=== PATIENT | male | born 1980 | race Caucasian/White ===

== ENCOUNTER 2019-10-13 14:59 | Emergency (ER) | payer MEDICARE, OTHER ==
--- NOTE | 2019-10-13 16:06 | UC ---
Respiratory Complaint HPI - HPI Summary HPI Summary: 39-year-old male presents to urgent care with complaints of fever, nasal congestion, sinus pressure, sore throat, chest congestion, shortness of breath, wheezing, and productive cough of brownish sputum for the past week and a half. No history of asthma. Denies ear pain, dysphagia, chest pain, palpitations, diaphoresis, abdominal pain, nausea, or vomiting. - History of Current Complaint Chief Complaint: UCRespiratory Stated Complaint: RESP COMPLAINT Time Seen by Provider: 10/13/19 15:35 Hx Obtained From: Patient Pain Intensity: 5 - Allergies/Home Medications Allergies/Adverse Reactions: Allergies Allergy/AdvReac Type Severity Reaction Status Date / Time makeup Allergy Hives Uncoded 10/13/19 15:15 Home Medications: Home Medications Albuterol HFA INHALER* [Ventolin HFA Inhaler*] 2 puff INH ONCE PRN 10/13/19 [ History Confirmed 10/13/19] Dm/PE/Acetaminophen/Doxylamine [Vicks Dayquil-Nyquil Cold-Flu] 1 tab PO ONCE PRN 10/13/19 [History Confirmed 10/13/19] Eucalyptus/Menthol [Cough Drops] 1 tab PO ONCE PRN 10/13/19 [History Confirmed 10/13/19] PMH/Surg Hx/FS Hx/Imm Hx Previously Healthy: Yes - Denies significant PMH - Surgical History Surgical History: None - Family History Known Family History: Positive: Non-Contributory - Social History Occupation: Employed Full-time Lives: With Family Alcohol Use: Rare Substance Use Type: Excessive Caffeine Smoking Status (MU): Never Smoked Tobacco Review of Systems All Other Systems Reviewed And Are Negative: Yes Constitutional: Positive: Fever, Chills Skin: Negative: Rash Eyes: Negative: Drainage, Eye Redness ENT: Positive: Sore Throat, Nasal Discharge, Sinus Congestion, Sinus Pain/ Tenderness. Negative: Ear Ache Respiratory: Positive: Shortness Of Breath, Cough, Other - Wheezing Cardiovascular: Negative: Palpitations, Chest Pain Gastrointestinal: Negative: Abdominal Pain, Vomiting, Nausea Musculoskeletal: Positive: Negative Neurological: Positive: Negative Is Patient Immunocompromised?: No Physical Exam - Summary Physical Exam Summary: GENERAL APPEARANCE: Well developed, well nourished, alert and cooperative, and appears to be in no acute distress. EYES: Conjunctiva clear. No drainage. EARS: External auditory canals and tympanic membranes clear, hearing grossly intact. NOSE: Moderate nasal congestion. No nasal discharge. THROAT: Mild pharyngeal erythema with postnasal drip. No tonsilar inflammation , swelling, exudate, or lesions. Uvula midline. NECK: Neck supple, non-tender without lymphadenopathy. CARDIAC: Normal S1 and S2. No S3, S4 or murmurs. Rhythm is regular. There is no peripheral edema, cyanosis or pallor. Extremities are warm and well perfused. Capillary refill is less than 2 seconds. Peripheral pulses intact. LUNGS: Diminished breath sounds with diffuse bilateral expiratory wheezes. Harsh, bronchospastic cough. ABDOMEN: Positive bowel sounds. Soft, nondistended, nontender. No guarding or rebound. No masses or hepatosplenomegally. MUSKULOSKELETAL: ROM intact to all extremities. No joint erythema or tenderness. Normal muscular development. Normal gait. SKIN: Skin normal color, texture and turgor with no lesions or eruptions. Triage Information Reviewed: Yes Vital Signs: Initial Vital Signs Temp 100.1 F 10/13/19 15:04 Pulse 126 10/13/19 15:04 Resp 20 10/13/19 15:04 BP 126/74 10/13/19 15:04 Pulse Ox 98 10/13/19 15:04 Vital Signs Reviewed: Yes Diagnostics - Radiology No standard instances Radiology Interpretation Completed By: Radiologist Summary of Radiographic Findings: Order Information: CHEST PA LAT 2 VWS. HISTORY: cough, sob. COMPARISONS: March 13, 2016 VIEWS: 4: Frontal dual-energy and lateral views of the chest. FINDINGS: CARDIOMEDIASTINAL SILHOUETTE: The cardiomediastinal silhouette is normal. ANTONY: The antony are normal. PLEURA: The costophrenic angles are sharp. No pleural abnormalities are noted. LUNG PARENCHYMA: The lungs are clear. ABDOMEN: The upper abdomen is clear. There is no subphrenic gas. BONES AND SOFT TISSUES: No bone or soft tissue abnormalities are noted. OTHER: None. IMPRESSION: NO ACTIVE CARDIOPULMONARY DISEASE Respiratory Course/Dx - Course Course Of Treatment: 39-year-old male presents to urgent care with complaints of fever, nasal congestion, sinus pressure, sore throat, chest congestion, shortness of breath, wheezing, and productive cough of brownish sputum for the past week and a half. No history of asthma. Denies ear pain, dysphagia, chest pain, palpitations, diaphoresis, abdominal pain, nausea, or vomiting. Patient had an elevated temperature of 100.1 F and was tachycardic otherwise vital signs were stable. He was given a dose of acetaminophen 975 mg PO for the fever. On exam he had moderate nasal congestion, mild pharyngeal erythema with postnasal drip, no tonsillar swelling or exudate, no cervical lymphadenopathy, diminished bilateral breath sounds with diffuse expiratory wheezes, a harsh, bronchospastic cough, and otherwise unremarkable exam. A chest x-ray was obtained and no acute cardiopulmonary pathology was noted. He was given a DuoNeb treatment and prednisone 60 mg PO to treat for some reactive airway disease secondary to an upper respiratory infection. Patient reported improvement in breathing and cough after the nebulizer treatment. He continued to have some bilateral expiratory wheezes however her exchange was much improved. Considering the duration of his symptoms and the persistent fever will start him on Augmentin 875 mg twice a day 10 days to treat for an upper respiratory infection and continue him on prednisone 50 mg daily for the next 4 days for the reactive airway disease as well as provide him with an albuterol inhaler and nebulizer solution to use as needed for shortness of breath and wheezing. He is to follow-up with his primary care provider in 3 days for recheck of his symptoms. Anticipatory guidance and warning symptoms are reviewed with the patient. Verbalizes understanding and agrees with plan of care. - Differential Dx/Diagnosis Differential Diagnosis/HQI/PQRI: Bronchitis, Influenza, Lower Resp Infection, Sinusitis Provider Diagnosis: Upper respiratory infection with cough and congestion, Reactive airway disease that is not asthma Discharge ED - Sign-Out/Discharge Documenting (check all that apply): Patient Departure All imaging exams completed and their final reports reviewed: Yes - Discharge Plan Condition: Stable Disposition: HOME Prescriptions: Albuterol 2.5MG/3ML (0.083%)* [Ventolin 2.5 MG/3 ML NEB.ALEX*] 2.5 mg INH Q4H PRN #50 neb.alex PRN Reason: Sob/Wheezing Albuterol HFA INHALER* [Ventolin HFA Inhaler*] 2 puff INH Q4H PRN #1 mdi PRN Reason: Sob/Wheezing Amoxicillin/Clavulanate TAB* [Augmentin TAB 875*] 875 mg PO BID 10 Days #20 tab predniSONE 50 mg TAB [Deltasone 50 mg TAB] 50 mg PO DAILY #4 tab Patient Education Materials: Upper Respiratory Infection (ED), Wheezing (ED) Referrals: Katelyn Andre MD [Primary Care Provider] - Additional Instructions: Your history and exam are consistent with an upper respiratory infection with reactive airway disease (wheezing). We will start you on an antibiotic for the infection and give you a steroid and inhaler/nebulizer to use for the shortness of breath and wheezing. Start Augmentin 875 mg 1 tablet twice a day for 10 days. Take with food to avoid upset stomach. Be sure to take the entire course even if feeling better. Take prednisone 50 mg 1 tablet daily for 4 days starting tomorrow. We gave the first dose today in the clinic. Use the albuterol inhaler or nebulizer solution every 4 hours as needed for shortness of breath or wheezing. Get plenty of rest. Drink plenty of fluids. Run a cool mist humidifer in your room at night. Take over the counter acetaminophen (Tylenol) or ibuprofen (Advil, Motrin) according to directions as needed for pain or fever. Follow up with your primary care provider in 3-5 days recheck of your symptoms. Seek immediate medical attention in the emergency room if you have fever greater than 100.5 F despite taking acetaminophen or ibuprofen, have chest pain , difficulty breathing, or have any worsening of symptoms. - Billing Disposition and Condition Condition: STABLE Disposition: Home - Attestation Statements Provider Attestation: This patient was not seen by me. I was available for consult. Chart reviewed. ROMEO
[2019-10-13] MEDS ORDERED: Albuterol/Ipratropium NEB.SOL* Albuterol 2.5 MG/Ipratropium 0.5 MG 3 ML INH ONE (16:26)
[2019-10-13] MEDS ORDERED: Acetaminophen TAB* 325 MG PO ONE (16:26)
[2019-10-13 17:17] VITALS: BP 140/81
== END 2019-10-13 17:15 | disposition home or self-care (01) ==
LOC: UCEAST 14:59
DX: J06.9 Acute upper respiratory infection, unspecified (principal); R05 Cough; R09.81 Nasal congestion; J98.8 Other specified respiratory disorders; Z91.09 Other allergy status, other than to drugs and biological substances
CPT/HCPCS: 71046; 99203; A9270-GY; G0463; J7512

== ENCOUNTER 2019-11-23 14:25 | Emergency (ER) | payer MEDICARE, OTHER ==
--- OUTSIDE RECORDS SUMMARY | 2019-11-23 14:30 | XMS REPORT | Summary of Care ---
:1980 Author Organization [facility] Address [address] [place] [address] Care Team Providers Name Role Phone Katelyn Andre Primary Care Provider Reason for Visit Reason Comments Follow Up f/u to URI Encounter Details Date Type Department Care Team Description 11/05/2019 Office Visit [facility], Acute bronchitis with Practice MD Katelyn bronchospasm (Primary [address] Dx) [place] [address] [place] [address] [phone] Allergies Active Allergy Reactions Severity Noted Date Comments Haloperidol And Related Musculoskeletal 01/03/2011 documented as of this encounter (statuses as of 11/05/2019) Medications Medication Sig Dispensed Refills Start Date End Date Status albuterol HFA Q4H 0 10/13/2019 Active (VENTOLIN) 108 (90 Base) MCG/ACT Inhalation Aero Soln albuterol Q4H 0 10/13/2019 Active (PROVENTIL, VENTOLIN) (2.5 MG/3ML) 0.083% Inhalation Nebu Soln budesonide-formo Take 2 INHL by 1 Inhaler 1 10/22/2019 Active terol fumarate inhalation (SYMBICORT) TWICE DAILY. 80-4.5 MCG/ACT Inhalation Aerosol amoxicillin-clav TWICE DAILY 0 10/13/2019 Discontinued ulanic acid 0 (Therapy (AUGMENTIN) Completed) 875-125 MG Oral Tab documented as of this encounter (statuses as of 11/05/2019) Active Problems No known active problemsdocumented as of this encounter (statuses as of 2019) Immunizations Name Administration Dates Next Due Influenza (IM) Preservative Free 07/22/2019 documented as of this encounter Social History Tobacco Use Types Packs/Day Years Used Date Former Smoker Cigars Smokeless Tobacco: Current User Chew Alcohol Use Drinks/Week oz/Week Comments Yes 9-14shots of vodka on weekends Alcohol Habits Answer Date Recorded How often do you have a drink containing alcohol? Monthly or less 10/22/2019 How many drinks containing alcohol do you have on a Not asked typical day when you are drinking? How often do you have six or more drinks on one Not asked occasion? Social Isolation Answer Date Recorded In a typical week, how many times do you More than three times a week 2019 talk on the phone with family, friends, or neighbors? How often do you get together with friends Once a week 10/22/2019 or relatives? How often do you attend adventist or Never 10/22/2019 jehovah's witness services? Do you belong to any clubs or No 10/22/2019 organizations such as adventist groups, unions, fraternal or athletic groups, or school groups? How often do you attend meetings of the Never 10/22/2019 clubs or organizations you belong to? Are you now , , , 10/22/2019 , never or living with a partner? Physical Activity Answer Date Recorded On average, how many days per week do you engage in moderate to 0 days 2019 strenuous exercise (like walking fast, running, jogging, dancing, swimming, biking, or other activities that cause a light or heavy sweat)? On average, how many minutes do you engage in exercise at this 0 min 2019 level? Stress Answer Date Recorded Do you feel stress - tense, restless, nervous, or anxious, Not at all 2019 or unable to sleep at night because your mind is troubled all the time - these days? Financial Resource Strain Answer Date Recorded How hard is it for you to pay for the very basics like Not hard at all 2019 food, housing, medical care, and heating? Intimate Partner Violence Answer Date Recorded Within the last year, have you been afraid of your partner or No 10/22/2019 ex-partner? Within the last year, have you been humiliated or emotionally No 10/22/2019 abused in other ways by your partner or ex-partner? Within the last year, have you been kicked, hit, slapped, or No 10/22/2019 otherwise physically hurt by your partner or ex-partner? Within the last year, have you been raped or forced to have any No 10/22/2019 kind of sexual activity by your partner or ex-partner? Food Insecurity Answer Date Recorded Within the past 12 months, you worried that your food would Never true 2019 run out before you got money to buy more. Within the past 12 months, the food you bought just didn't Never true 2019 last and you didn't have money to get more. Transportation Needs Answer Date Recorded In the past 12 months, has lack of transportation kept you from No 10/22/2019 medical appointments or from getting medications? In the past 12 months, has lack of transportation kept you from No 10/22/2019 meetings, work, or getting things needed for daily living? Sex Assigned at Date Recorded Not on file documented as of this encounter Last Filed Vital Signs Vital Sign Reading Time Taken Comments Blood Pressure 110/70 11/05/2019 3:47 PM EST Pulse 106 11/05/2019 3:47 PM EST Temperature 36.9 11/05/2019 3:47 PM EST C (98.4 F) Respiratory Rate - - Oxygen Saturation 94% 11/05/2019 3:47 PM EST Inhaled Oxygen Concentration - - Weight 108.9 kg (240 lb) 11/05/2019 3:47 PM EST Height 180.3 cm (5' 11") 11/05/2019 3:47 PM EST Body Mass Index 33.47 11/05/2019 3:47 PM EST documented in this encounter Patient Instructions Patient InstructionsKatelyn Andre MD - 11/05/2019 3:40 PM EST1. Continue same treatment 2. Follow up in 1 month for physical documented in this encounter Progress Notes Katelyn Andre MD - 11/05/2019 3:40 PM EST PATIENT: [place] Gallegos : 1980 DATE OF SERVICE: 11/05/2019 Patient comes follow up acute bronchitis with bronchospasm Feels better: resolved cough, uses Albuterol once or twice a day Doesn't use nebulizer at all Past Medical History: Diagnosis Date ? Bipolar affective disorder (HCC) Dr. Partida ? Lumbar herniated disc 2004 times 3 ? Pancreatitis Outpatient Medications as of 11/05/2019 Medication Sig Dispense Refill ? albuterol (PROVENTIL, VENTOLIN) (2.5 MG/3ML) 0.083% Inhalation Nebu Soln Q4H ? albuterol HFA (VENTOLIN) 108 (90 Base) MCG/ACT Inhalation Aero Soln Q4H ? budesonide-formoterol fumarate (SYMBICORT) 80-4.5 MCG/ACT Inhalation Aerosol Take 2 INHL by inhalation TWICE DAILY. 1 Inhaler 1 No current facility-administered medications on file as of 11/05/2019. BP 110/70 (BP Location: Left arm, Patient Position: Sitting) | Pulse 106 | Temp 98.4 F (36.9 C) (Tympanic) | Ht 5' 11" (1.803 m) | Wt 240 lb ( 108.9 kg) | SpO2 94% | BMI 33.47 kg/m General appearance: alert, well appearing, and in no distress. Chest: clear to auscultation, no wheezes, rales or rhonchi, symmetric air entry. CVS exam: normal rate, regular rhythm, normal S1, S2, no murmurs, rubs, clicks or gallops. ICD-9-CM ICD-10-CM 1. Acute bronchitis with bronchospasm Much improved 466.0 J20.9 Patient also brings up today erectile dysfunction, chronic back pain, weight gain We agreed to address it next visit Patient Instructions 1. Continue same treatment 2. Follow up in 1 month for physical Author: Katelyn Andre MD 11/05/2019 16:14 documented in this encounter Plan of Treatment Health Maintenance Due Date Last Done Comments DTaP/Tdap/Td Vaccines (1 - Tdap) 1992 DEPRESSION SCREENING 10/22/2020 10/22/2019 INFLUENZA VACCINE Completed 07/22/2019 HEPATITIS A IMMUNIZATION SERIES Aged Out No longer eligible based on patient's age to complete this topic HPV IMMUNIZATION SERIES Aged Out No longer eligible based on patient's age to complete this topic MENINGOCOCCAL VACCINE IMM Aged Out No longer eligible based on patient's age to complete this topic PNEUMOCOCCAL 0-64 YRS Aged Out No longer eligible based on patient's age to complete this topic documented as of this encounter Results Not on filedocumented in this encounter Visit Diagnoses Diagnosis Acute bronchitis with bronchospasm Acute bronchitis documented in this encounter Insurance Payer Benefit Plan / Subscriber ID Effective Dates Phone Address Type Group AETNA COMMERCIAL AETNA [id number] 2017-Present Aetna Guarantor Name Account Type Relation to Date of Phone Billing Patient Address Sera Gallegos Personal/Family [address] (Home) [place], [place] [phone] (Work) documented as of this encounter
--- OUTSIDE RECORDS SUMMARY | 2019-11-23 14:30 | XMS REPORT | Summary of Care ---
:1980 Author Organization [facility] Address [address] [place] [address] Care Team Providers Name Role Phone Katelyn Andre Primary Care Provider Reason for Visit Reason Comments Establish Care pt presents to establish care Cough pt presents for cough that does not seem to be going away. Was seen at urgent care 10/13. Encounter Details Date Type Department Care Team Description 10/22/2019 Office Visit [facility] adult exam (Primary Dx); Practice MD Katelyn Acute bronchitis, unspecified organism; [address] [place] [address] [place] [address] [phone] Allergies Active Allergy Reactions Severity Noted Date Comments Haloperidol And Related Musculoskeletal 01/03/2011 documented as of this encounter (statuses as of 10/22/2019) Medications Medication Sig Dispensed Refills Start Date End Date Status amoxicillin-clavulan TWICE DAILY 0 10/13/2019 Active ic acid (AUGMENTIN) 875-125 MG Oral Tab albuterol HFA Q4H 0 10/13/2019 Active (VENTOLIN) 108 (90 Base) MCG/ACT Inhalation Aero Soln albuterol Q4H 0 10/13/2019 Active (PROVENTIL, VENTOLIN) (2.5 MG/3ML) 0.083% Inhalation Nebu Soln budesonide-formotero Take 2 INHL by 1 Inhaler 1 10/22/2019 Active l fumarate inhalation TWICE (SYMBICORT) 80-4.5 DAILY. MCG/ACT Inhalation Aerosol documented as of this encounter (statuses as of 10/22/2019) Active Problems No known active problemsdocumented as [...] or relatives? How often do you attend nondenominational or Never 10/22/2019 mosque services? Do you belong to any clubs or No 10/22/2019 organizations such as nondenominational groups, unions, fraternal or athletic groups, or [...] Assigned at Date Recorded Not on file Job Start Date Occupation Industry Not on file Not on file Not on file Travel History Travel Start Travel End No recent travel history available. documented as of this encounter Last Filed Vital Signs Vital Sign Reading Time Taken Comments Blood Pressure 104/64 10/22/2019 4:04 PM EST Pulse 103 10/22/2019 4:04 PM EST Temperature 37.1 10/22/2019 4:04 PM EST C (98.8 F) Respiratory Rate - - Oxygen Saturation 99% 10/22/2019 4:04 PM EST Inhaled Oxygen Concentration - - Weight 111.1 kg (245 lb) 10/22/2019 4:04 PM EST Height 180.3 cm (5' 11") 10/22/2019 4:04 PM EST Body Mass Index 34.17 10/22/2019 4:04 PM EST documented in this encounter Patient Instructions Patient InstructionsKatelyn Andre MD - 10/22/2019 4:00 PM EST1. Start Symbicort 2 puffs 2 times a day 2. Continue Albuterol 2 puffs every 4 hours as needed for wheezing and shortness of breath 3. Take Mucinex 600 mg 2 times a day 4. Follow up in 2 weeks and as needed documented in this encounter Progress Notes Katelyn Andre MD - 10/22/2019 4:00 PM EST Patient: [place] Gallegos Date of Service: 10/22/2019 Subjective: uCba Gallegos is a 39-y.o. male who presents for Chief Complaint Patient presents with Establish Care pt presents to establish care Cough pt presents for cough that does not seem to be going away. Was seen at urgent care 10/13. Seen at [facility] on 10/13/19 with complains of fever, nasal congestion, productive cough with colored sputum started 1.5 weeks prior Treated with Augmentin, Prednisone, Albuterol as needed Reduced cough. Still has some wheezing Chest X-ray done 10/13 - no acute findings Past Medical History: Diagnosis Date Bipolar affective disorder (HCC) Dr. Partida Lumbar herniated disc 2004 times 3 Pancreatitis Outpatient Medications as of 10/22/2019 Medication Sig Dispense Refill albuterol (PROVENTIL, VENTOLIN) (2.5 MG/3ML) 0.083% Inhalation Nebu Soln Q4H albuterol HFA (VENTOLIN) 108 (90 Base) MCG/ACT Inhalation Aero Soln Q4H amoxicillin-clavulanic acid (AUGMENTIN) 875-125 MG Oral Tab TWICE DAILY No current facility-administered medications on file as of 10/22/2019. Allergies Allergen Reactions Haloperidol And Related Musculoskeletal Review of Systems: All remaining review of systems was negative. Objective: BP 104/64 (BP Location: Right arm, Patient Position: Sitting) Pulse 103 Temp 98.8 F (37.1 C) Ht 5' 11" (1.803 m) Wt 245 lb (111.1 kg) SpO2 99% BMI 34.17 kg/m2 GENERAL: alert, no distress HEAD: normocephalic, without obvious abnormality EYES: conjunctivae/corneas clear. Pupils equal, round, reactive to light. Equal ocular movements intact. EARS: normal tympanic membranes and external ear canals, bilaterally NOSE: Mild congestion THROAT: lips, mucosa, and tongue normal: teeth and gums normal NECK: supple, symmetrical, trachea midline and no adenopathy BACK: negative LUNGS: clear to auscultation bilaterally HEART: regular rate and rhythm, S1, S2 normal, no murmur, click, rub or gallop ABDOMEN: soft, non-tender. Bowel sounds normal. No masses, no organomegaly EXTREMITIES: extremities normal, atraumatic, no cyanosis or edema PULSES: 2+ and symmetric SKIN: Skin color, texture, turgor normal. No rashes or suspicious lesions. LYMPH NODES: cervical, supraclavicular, and axillary nodes normal. NEUROLOGIC: Grossly normal Male exam: no penile lesions or discharge, no testicular masses or tenderness , no hernias. ICD-9-CM ICD-10-CM 1. Well adult exam V70.0 Z00.00 2. Acute bronchitis, unspecified organism 466.0 J20.9 3. Wheezing 786.07 R06.2 Patient Instructions 1. Start Symbicort 2 puffs 2 times a day 2. Continue Albuterol 2 puffs every 4 hours as needed for wheezing and shortness of breath 3. Take Mucinex 600 mg 2 times a day 4. Follow up in 2 weeks and as needed Author: Katelyn Andre MD documented in this encounter Plan of Treatment Date Type Specialty Care Team Description 11/05/2019 Office Visit Family Practice Katelyn Andre MD [address] [place] [address] [phone] Health Maintenance Due Date Last Done Comments DTaP/Tdap/Td Vaccines (1 - Tdap) 1992 INFLUENZA VACCINE (#1) 2019 DEPRESSION SCREENING 10/22/2020 10/22/2019 HEPATITIS A IMMUNIZATION SERIES Aged Out No [...] filedocumented in this encounter Visit Diagnoses Diagnosis Well adult exam Routine general medical examination at a [facility] care facility Acute bronchitis, unspecified organism Wheezing documented in this encounter Insurance Payer Benefit Plan / Subscriber ID Effective Dates Phone Address Type Group AETNA COMMERCIAL AETNA xxxxxxxxxx 2017-Present Aetna Guarantor Name Account Type Relation to Date of Phone Billing Patient Address Sera Gallegos Personal/Family 1980 [address] (Home) [place], [place] [phone] (Work) documented as of this encounter
[2019-11-23] MEDS ORDERED: Ibuprofen TAB* 600 MG PO ONE (15:02)
[2019-11-23 15:25] LABS: Influenza A Molecular Negative (Negative); Influenza B Molecular Negative (Negative)
--- NOTE | 2019-11-23 15:40 | UC ---
Respiratory Complaint HPI - HPI Summary HPI Summary: 39-year-old male presents with 3 week history of general malaise, intermittent fever and chills, nasal congestion, sinus pressure, shortness of breath, and a productive cough for brownish colored sputum. States over the last couple of days he has started noticing some blood streaking in the sputum. Patient was seen at this facility by myself on 10/13/2019 for similar symptoms. He had a negative chest x-ray at that time and was treated for an upper respiratory infection with reactive airway disease with a 10 day course of Augmentin, a prednisone burst, and was provided albuterol nebulizer solution as well as an albuterol inhaler. Patient states that his symptoms did improve and was feeling well for approximately 2 weeks until symptoms returned. States he has been continuing to use his albuterol inhaler. Last used at approximately 3:30 AM. Reports took acetaminophen 650 mg at approximately 1:30 PM. Denies ear pain , sore throat, chest pain, palpitations, abdominal pain, nausea, vomiting, or diarrhea. - History of Current Complaint Chief Complaint: UCRespiratory Stated Complaint: COUGH Time Seen by Provider: 11/23/19 15:35 Hx Obtained From: Patient Pain Intensity: 0 - Allergies/Home Medications Allergies/Adverse Reactions: Allergies Allergy/AdvReac Type Severity Reaction Status Date / Time makeup Allergy Hives Uncoded 11/23/19 14:58 Home Medications: Home Medications Albuterol 2.5MG/3ML (0.083%)* [Ventolin 2.5 MG/3 ML NEB.ALEX*] 2.5 mg INH Q4H PRN #50 neb.alex 10/13/19 [Rx] Albuterol HFA INHALER* [Ventolin HFA Inhaler*] 2 puff INH ONCE PRN 10/13/19 [ History Confirmed 10/13/19] Dm/PE/Acetaminophen/Doxylamine [Vicks Dayquil-Nyquil Cold-Flu] 1 tab PO ONCE PRN 10/13/19 [History Confirmed 10/13/19] Acetaminophen [Tylenol] 650 mg PO Q6H PRN 11/23/19 [History Confirmed 11/23/19] PMH/Surg Hx/FS Hx/Imm Hx Previously Healthy: Yes - Surgical History Surgical History: None - Family History Known Family History: Positive: Non-Contributory - Social History Alcohol Use: Rare Substance Use Type: Excessive Caffeine Smoking Status (MU): Never Smoked Tobacco Review of Systems All Other Systems Reviewed And Are Negative: Yes Constitutional: Positive: Fever, Chills, Fatigue Skin: Negative: Rash Eyes: Negative: Drainage, Eye Redness ENT: Positive: Nasal Discharge, Sinus Congestion, Sinus Pain/Tenderness. Negative: Sore Throat, Ear Ache Respiratory: Positive: Shortness Of Breath, Cough Cardiovascular: Negative: Palpitations, Chest Pain Gastrointestinal: Negative: Abdominal Pain, Vomiting, Diarrhea, Nausea Genitourinary: Positive: Negative Musculoskeletal: Positive: Negative Neurological/Mental Status: Positive: Negative Is Patient Immunocompromised?: No Physical Exam - Summary Physical Exam Summary: GENERAL APPEARANCE: A alert and cooperative adult male who is tachypnic and unable to speak in full sentences due to his SOB. EYES: Conjunctiva clear. No drainage. EARS: External auditory canals and tympanic membranes clear, hearing grossly intact. NOSE: Mild-moderate nasal congestion. No nasal discharge. THROAT: Pharyngeal cobblestoning. No tonsilar inflammation, swelling, exudate, or lesions. Uvula midline. NECK: Neck supple, non-tender without lymphadenopathy. CARDIAC: Normal S1 and S2. No S3, S4 or murmurs. Rhythm is regular. Tachycardic. There is no peripheral edema, cyanosis or pallor. Extremities are warm and well perfused. Capillary refill is less than 2 seconds. Peripheral pulses intact. LUNGS: Bilateral diminished breath sounds with diffuse expiratory wheezes. Loose productive cough for thick garnica-colored sputum. ABDOMEN: Positive bowel sounds. Soft, nondistended, nontender. No guarding or rebound. No masses or hepatosplenomegally. MUSKULOSKELETAL: ROM intact to all extremities. No joint erythema or tenderness. Normal muscular development. Normal gait. SKIN: Skin normal color, texture and turgor with no lesions or eruptions. Triage Information Reviewed: Yes Vital Signs: Initial Vital Signs Temp 102.4 F 11/23/19 14:56 Pulse 104 11/23/19 14:56 Resp 24 11/23/19 14:56 BP 118/70 11/23/19 14:56 Pulse Ox 99 11/23/19 14:56 Vital Signs Reviewed: Yes Diagnostics - Radiology No standard instances Radiology Interpretation Completed By: Radiologist Summary of Radiographic Findings: Order Information: CHEST PA LAT 2 VWS. HISTORY: cough, SOB, fever. COMPARISONS: October 13, 2019 VIEWS: 4: Frontal dual-energy and lateral views of the chest. FINDINGS: CARDIOMEDIASTINAL SILHOUETTE: The cardiomediastinal silhouette is normal. ANTONY: The antony are normal. PLEURA: The costophrenic angles are sharp. No pleural abnormalities are noted. LUNG PARENCHYMA: There is faint alveolar opacification of the left midlung field. ABDOMEN: The upper abdomen is clear. There is no subphrenic gas. BONES AND SOFT TISSUES: No bone or soft tissue abnormalities are noted. OTHER: None. IMPRESSION: FAINT AIRSPACE DISEASE OF THE LEFT MIDLUNG. Respiratory Course/Dx - Course Course Of Treatment: 39-year-old male presents with 3 week history of general malaise, intermittent fever and chills, nasal congestion, sinus pressure, shortness of breath, and a productive cough for brownish colored sputum. States over the last couple of days he has started noticing some blood streaking in the sputum. Patient was seen at this facility by myself on 10/13/2019 for similar symptoms. He had a negative chest x-ray at that time and was treated for an upper respiratory infection with reactive airway disease with a 10 day course of Augmentin, a prednisone burst, and was provided albuterol nebulizer solution as well as an albuterol inhaler. Patient states that his symptoms did improve and was feeling well for approximately 2 weeks until symptoms returned. States he has been continuing to use his albuterol inhaler. Last used at approximately 3:30 AM. Reports took acetaminophen 650 mg at approximately 1:30 PM. Denies ear pain , sore throat, chest pain, palpitations, abdominal pain, nausea, vomiting, or diarrhea. Clinic triage patient had an elevated temperature of 102.4 F with a corresponding tachycardia otherwise vital signs were stable. Patient was given ibuprofen 600 mg for the fever. On exam patient was tachypnic, unable to spead full sentences due to the SOB, he had mild to moderate nasal congestion, pharyngeal cobblestoning, no cervical lymphadenopathy, he was tachycardic with a normal S1 and S2, breath sounds were diminished bilaterally with diffuse wheezes, he had a productive cough for garnica colored sputum, and otherwise unremarkable exam. Nursing obtained an ambulatory pulse ox and reported that he became very short of breath dropping his O2 saturation to 91% with an increase in his heart rate into the 120s. Rapid influenza was negative. CXR showed a faint alveolar opacification of the left midlung field. Reviewed results with the patient. Nursing reported that the patient's fever increased to 104.4 F. Discussed with the patient that based on his dyspnea, exertional hypoxia, persistent fever, and evidence of pneumonia recommending he be further evaluated in the emergency room at this time and be transported via EMS to which results he is agreeable. He did receive a DuoNeb treatment with some improvement in his breathing. A sputum culture was obtained and is pending. An IV was established, 2 sets of blood cultures were obtained and labs were drawn and blood was sent with the patient to the ED. Patient was given ceftriaxone 1 g IV. Report was given to CHEYANNE Jean in the [facility] ED. - Differential Dx/Diagnosis Differential Diagnosis/HQI/PQRI: Bronchitis, Influenza, Lower Resp Infection, Other - Reactive airway disease Provider Diagnosis: Community acquired pneumonia - Physician Notification/Consults Discussed Patient Care With: Anna Peña Time Discussed With Above Provider: 16:40 Instructed by Provider To: Will See In ED Discharge ED - Sign-Out/Discharge Documenting (check all that apply): Patient Departure All imaging exams completed and their final reports reviewed: Yes - Discharge Plan Condition: Stable Disposition: TRANS HIGHER LVL OF CARE FAC Referrals: Katelyn Andre MD [Primary Care Provider] - - Billing Disposition and Condition Condition: STABLE Disposition: Trans Higher Lvl of Care Fac
[2019-11-23] MEDS ORDERED: Acetaminophen TAB* 325 MG PO ONE (15:50)
[2019-11-23] MEDS ORDERED: Albuterol/Ipratropium NEB.SOL* Albuterol 2.5 MG/Ipratropium 0.5 MG 3 ML INH ONE (15:50)
[2019-11-23] MEDS ORDERED: Levofloxacin TAB* 250 MG PO ONE (16:23)
[2019-11-23] MEDS ORDERED: cefTRIAXone VIAL(*) 1,000 MG VIAL IVPB ONE (16:28)
[2019-11-23 16:52] VITALS: BP 155/91
[2019-11-23] MEDS ORDERED: NS 0.9% 1000 ML** 1,000 ML IV ONE (16:55)
== END 2019-11-23 17:41 | disposition short-term general hospital (02) ==
LOC: UCEAST 14:25
DX: J18.8 Other pneumonia, unspecified organism (principal); R91.8 Other nonspecific abnormal finding of lung field; Z91.09 Other allergy status, other than to drugs and biological substances; Z79.899 Other long term (current) drug therapy
CPT/HCPCS: 71046; 99213; A9270-GY; G0463; J0696

== ENCOUNTER 2019-11-23 17:11 | Inpatient (IN) | payer OTHER ==
--- NOTE | 2019-11-23 17:23 | ED ---
Respiratory - HPI Summary HPI Summary: This patient is a 39 y/o male presenting to [facility] via EMS from [facility] for fever and cough. Patient reports he went to [facility] on 10/13/19 with fevers, chills, nasal congestion, shortness of breath, and productive cough. He was diagnosed with upper respiratory infection and reactive airway disease and was prescribed steroids, albuterol inhaler, and Augmentin. After these medications patient felt better and his symptoms improved until 2 weeks later when his symptoms returned. Patient went to [facility] again today with a 104F fever and was given Tylenol, started on 1 gram of Rocephin and referred to the ED. [facility] helene blood and sent blood cultures to the ED. Patient denies any chest pain, nausea, vomiting. Per EMS, patient SPO2 dropped to 91% on room air upon ambulation. Denies hx of asthma. Home Medications Medication Instructions Recorded Confirmed Type Albuterol 2.5MG/3ML (0.083%)* 2.5 mg INH Q4H PRN #50 neb.alex 10/13/19 Rx [Ventolin 2.5 MG/3 ML NEB.ALEX*] Albuterol HFA INHALER* [Ventolin 2 puff INH ONCE PRN 10/13/19 10/13/19 History HFA Inhaler*] Dm/PE/Acetaminophen/Doxylamine 1 tab PO ONCE PRN 10/13/19 10/13/19 History [Vicks Dayquil-Nyquil Cold-Flu] Acetaminophen [Tylenol] 650 mg PO Q6H PRN 11/23/19 11/23/19 History - History of Current Complaint Stated Complaint: FEVER PER EMS Hx Obtained From: Patient Onset/Duration: Lasting Weeks, Still Present Timing: Constant Pain Intensity: 0 Character: Cough (Productive), Dyspnea at Rest Aggravating Factor(s): Nothing Alleviating Factor(s): Nothing Associated Signs and Symptoms: Fever, SOB, URI, Chills - Allergy/Home Medications Allergies/Adverse Reactions: Allergies Allergy/AdvReac Type Severity Reaction Status Date / Time makeup Allergy Hives Uncoded 11/23/19 17:22 Home Medications: Home Medications Albuterol 2.5MG/3ML (0.083%)* [Ventolin 2.5 MG/3 ML NEB.ALEX*] 2.5 mg INH Q4H PRN #50 neb.alex 10/13/19 [Rx Confirmed 11/23/19] Dm/PE/Acetaminophen/Doxylamine [Vicks Dayquil-Nyquil Cold-Flu] 1 tab PO DAILY PRN 10/13/19 [History Confirmed 11/23/19] Acetaminophen [Tylenol] 650 mg PO Q6H PRN 11/23/19 [History Confirmed 11/23/19] Albuterol inh POWDER (NF) [Proair Respiclick] 2 puff INH Q6HR PRN 11/23/19 [ History Confirmed 11/23/19] Budesonide/Formote 80/4.5(NF) [Symbicort 80/4.5 (NF)] 2 puff INH BID 11/23/19 [ History Confirmed 11/23/19] PMH/Surg Hx/FS Hx/Imm Hx GI History: Denies: Other GI Disorders - DENIES History: Denies: Other Problems/Disorders - DENIES Infectious Disease History: No Infectious Disease History: Denies: Traveled Outside the [place] in Last 30 Days - Family History Known Family History: Negative: Cardiac Disease, Hypertension, Diabetes - Social History Alcohol Use: Rare Substance Use Type: Reports: Excessive Caffeine Smoking Status (MU): Never Smoked Tobacco Review of Systems Positive: Fever Negative: Chest Pain Positive: Shortness Of Breath, Cough Negative: Vomiting, Nausea All Other Systems Reviewed And Are Negative: Yes Physical Exam - Summary Physical Exam Summary: VITAL SIGNS: Reviewed. GENERAL: Patient is a well-developed and nourished male who is lying comfortable in the stretcher. Patient is not in any acute respiratory distress. HEAD AND FACE: No signs of trauma. No ecchymosis, hematomas or skull depressions. No sinus tenderness. EYES: PERRLA, EOMI x 2, No injected conjunctiva, no nystagmus. EARS: Hearing grossly intact. Ear canals and tympanic membranes are within normal limits. MOUTH: Oropharynx within normal limits. NECK: Supple, trachea is midline, no adenopathy, no JVD, no carotid bruit, no c- spine tenderness, neck with full ROM. CHEST: Symmetric, no tenderness at palpation LUNGS: Crackles and wheezing. CVS: Regular rate and rhythm, S1 and S2 present, no murmurs or gallops appreciated. ABDOMEN: Soft, non-tender. No signs of distention. No rebound, no guarding, and no masses palpated. Bowel sounds are normal. EXTREMITIES: FROM in all major joints, no edema, no cyanosis or clubbing. Patient has an IV access on the left side receiving Rocephin from Urgent Care with IV fluids. NEURO: Alert and oriented x 3. No acute neurological deficits. Speech is normal and follows commands. SKIN: Dry and warm Triage Information Reviewed: Yes Vital Signs On Initial Exam: Initial Vitals Temp Pulse Resp BP Pulse Ox 100.5 F 124 30 142/86 97 11/23/19 17:15 11/23/19 17:15 11/23/19 17:15 11/23/19 17:15 11/23/19 17:15 Vital Signs Reviewed: Yes Procedures - Sedation Patient Received Moderate/Deep Sedation with Procedure: No Diagnostics - Vital Signs Vital Signs Temp Pulse Resp BP Pulse Ox 11/23/19 17:15 100.5 F 124 30 142/86 97 - Laboratory Result Diagrams: 11/23/19 17:17 11/23/19 17:17 Lab Statement: Any lab studies that have been ordered have been reviewed, and results considered in the medical decision making process. - Radiology Chest XR from Urgent Care Radiology Interpretation Completed By: Radiologist Summary of Radiographic Findings: IMPRESSION: Faint airspace disease of the left mid lung, recommend follow up until resolution to exclude underlying pulmonary parenchymal pathology. Dr. Matamoros has reviewed this report. - EKG 18:45 Cardiac Rate: Tachycardia - at 108 bpm EKG Rhythm: Sinus Tachycardia Summary of EKG Findings: EKG at 1845 shows sinus tachycardia at a rate of [address] elevations. This EKG was interpreted and reviewed by ED physician. Disposition - Course Assessment/Plan: This patient is a 39 y/o male presenting to [facility] via EMS from [facility] for fever and cough. Patient reports he went to [facility] on with fevers, chills, nasal congestion, shortness of breath, and productive cough. He was diagnosed with upper respiratory infection and reactive airway disease and was prescribed steroids, albuterol inhaler, and Augmentin. After these medications patient felt better and his symptoms improved until 2 weeks later when his symptoms returned. Patient went to [facility] again today with a 104F fever and was given Tylenol, started on 1 gram of Rocephin and referred to the ED. [facility] helene blood and sent blood cultures to the ED. Patient denies any chest pain, nausea, vomiting. Per EMS, patient SPO2 dropped to 91% on room air upon ambulation. Denies hx of asthma. CXR IMPRESSION: FAINT AIRSPACE DISEASE OF THE LEFT MIDLUNG. RECOMMEND FOLLOW-UP UNTIL RESOLUTION TO EXCLUDE UNDERLYING PULMONARY PARENCHYMAL PATHOLOGY. Before the patient came to the emergency department, at the urgent care the patient was given IV fluids, Rocephin and Tylenol. Blood test results without any significant abnormality except for WBCs of 11.5, hemoglobin 12.7, hematocrit 38 , CRP of 221 and BNP 105. Influenza A and B are both negative. The patient was also given azithromycin for pneumonia. The patient continues to be tachycardic and still febrile. Therefore, I discussed my physical exam and test results with Dr. Breaux from the hospitalist services and she agrees to admit the patient to her services. The patient is hemodynamically stable, alert and oriented x 3. - Diagnoses Provider Diagnoses: Pneumonia, Tachycardia, Fever - Physician Notifications Discussed Care Of Patient With: Dari Breaux - hospitalist Time Discussed With Above Provider: 19:32 Instructed by Provider To: Admit As Inpatient Discharge ED - Sign-Out/Discharge Documenting (check all that apply): Patient Departure - Admit to [facility] - Discharge Plan Condition: Stable Disposition: ADMITTED TO [facility] - Billing Disposition and Condition Condition: STABLE Disposition: Admitted to [facility] - Attestation Statements Document Initiated by Rony: Yes Documenting Scribe: Amairani Chavez Provider For Whom Rony is Documenting (Include Credential): Simone Matamoros MD Scribe Attestation: IAmairani, scribed for Simone Matamoros MD on 11/23/19 at 2058. Scribe Documentation Reviewed: Yes Provider Attestation: The documentation as recorded by the Amairani zamora accurately reflects the service I personally performed and the decisions made by me, Simone Matamoros MD Status of Scribe Document: Viewed
[2019-11-23 18:06] LABS: ABS Eosinophils 0.1 10^3/ul (0-0.6); ABS Lymphocytes 1.3 10^3/ul (1.0-4.8); ABS Monocytes 0.7 10^3/ul (0-0.8); ABS Neutrophils 9.5 10^3/ul (1.5-7.7); Eosinophil % 0.4 %; Hematocrit 38 % (42-52); Hemoglobin 12.7 g/dL (14.0-18.0); Lymphocyte % 10.9 %; Mean Corpuscular HGB Conc 34 g/dL (31-36); Mean Corpuscular Hemoglobin 30 pg (27-31); Mean Corpuscular Volume 89 fL (80-94); Mean Platelet Volume 9.2 fL (7.4-10.4); Platelet Count 217 10^3/uL (150-450); Red Blood Count 4.23 10^6 /uL (4.18-5.48); Red Cell Distribution Width 14 % (10-15); White Blood Count 11.5 10^3/uL (3.5-10.8)
[2019-11-23 18:19] LABS: Troponin I 0.01 ng/mL (<0.03)
[2019-11-23 18:20] LABS: Albumin 4.3 g/dL (3.2-5.2); Albumin/Globulin Ratio 1.4 (1-3); BUN/Creatinine Ratio 16.3 (8-20); C Reactive Protein 221.52 mg/L (<8.01); EGFR African American 130.9 (>60); EGFR Non-African American 108.2 (>60); Influenza A Molecular Negative (Negative); Influenza B Molecular Negative (Negative); Potassium 3.8 mmol/L (3.5-5.0); Total Bilirubin 0.4 mg/dL (0.2-1.0); Total Protein 7.3 g/dL (6.4-8.9)
[2019-11-23] MEDS ORDERED: NS 0.9% 1000 ML** 1,000 ML IV ONE (18:35)
[2019-11-23] MEDS ORDERED: Acetaminophen TAB* 325 MG PO ONE (18:49)
[2019-11-23] MEDS ORDERED: Azithromycin 500 mg/250 ml NS 500 MG/250 ML BAG IVPB ONE (19:02)
[2019-11-23 19:39] LABS: Urine Appearance Clear; Urine Bilirubin Negative (Negative); Urine Blood 3+ (Negative); Urine Color Yellow; Urine Glucose Negative (Negative); Urine Ketones 2+ (Negative); Urine Nitrite Negative (Negative); Urine Protein 2+(100 mg/dL) (Negative); Urine Specific Gravity 1.031 (1.010-1.030); Urine Urobilinogen Negative (Negative)
[2019-11-23 19:42] LABS: Urine Bacteria Absent (Absent); Urine Red Blood Cell 3+(>10/hpf) (Absent); Urine Squamous Epithelial Cell Present (Absent); Urine White Blood Cell Trace(0-5/hpf) (Absent)
[2019-11-23] MEDS ORDERED: Acetaminophen TAB* 325 MG PO PRN ×2 (20:07→23:28)
[2019-11-23] MEDS ORDERED: Albuterol 2.5 MG/3 ML NEB.SOL* (0.083%) INH PRN (20:07)
[2019-11-23] MEDS ORDERED: NS 0.9% IV ONE (20:15)
[2019-11-23] MEDS ORDERED: Iohexol 300* (CONTRAST) 10 ML SDV IV ONE (20:44)
[2019-11-23 20:56] LABS: Activated Partial Thrombo Time 38.1 seconds (26.0-38.0); INR 1.29 (0.82-1.09)
--- NOTE | 2019-11-23 21:45 | HP ---
CC: Dr. Andre * HISTORY AND PHYSICAL: DATE OF ADMISSION: 11/23/19 PRIMARY CARE PROVIDER: Dr. Andre. ATTENDING PHYSICIAN WHILE IN THE HOSPITAL: Dr. Dari Breaux * (report dictated by Efraín Carver NP). CHIEF COMPLAINT: 1. Cough. 2. Fever. 3. Not feeling well. HISTORY OF PRESENT ILLNESS: Mr. Kay is a 39-year-old male patient, previously healthy, who states that the last 4 weeks he has been dealing with a cough, not feeling well, feeling under the weather. He says that 3 to 2 weeks ago, he had seen his primary. He says that he went to [facility] because he could not get into the primary. He was seen on 10/13/19 with fevers, chills , nasal congestion, shortness of breath. He was diagnosed with URI. He was given steroids, albuterol and Augmentin. He initially felt better on these medications; however, approximately 2 weeks after, his symptoms came back again and he had a fever of 104 today. He felt dizzy. He felt lightheaded. He was coughing. He felt more short of breath. He was feeling congested. He was concerned and went to [facility] again given these findings. It was noted there that on x-ray it appeared that he had pneumonia, he also was noted to be 91% while ambulating on room air, there was a concern, he also reports that he has been coughing up brown colored sputum and at times having hemoptysis. He says that he has no other medical history such as like asthma and he is not diabetic. No history of HIV or hepatitis B or C. He came into the ER. He was exhibiting signs of sepsis. Given the fact that he was little hypoxic and the fact that he is little tachypneic, we were asked to evaluate for admission. PAST MEDICAL HISTORY: Denied. PAST SURGICAL HISTORY: Denied. MEDICATIONS: Home meds that were prescribed at [facility] include: 1. Symbicort 2 puffs inhaled b.i.d. 2. ProAir 2 puffs inhaled every 6 hours as needed. 3. Ventolin neb 2.5 mg inhaled every 4 hours as needed. 4. Tylenol 650 mg every 6 hours as needed. 5. Vicks DayQuil 1 tablet p.o. daily as needed. 6. He did finish a course of Augmentin. ALLERGIES TO MEDICATIONS: Include no known drug allergies. FAMILY HISTORY: He says his mother has dementia. His father had a history of heart disease, diabetes and endstage renal disease. SOCIAL HISTORY: He does not smoke. He occasionally drinks alcohol. He is engaged. His fiancee is a surrogate decision maker. He does have 4 children. REVIEW OF SYSTEMS: There is a documented fever. He denied any significant weight change. There is no double vision. He denied having any ear discharge. There was rhinorrhea. There was sore throat. There is no thyroid enlargement. He denies having any chest pain. There was no orthopnea. There was no nocturnal dyspnea. There was no abdominal pain. No nausea, vomiting, or dysuria. No frequency, no seizure, no loss of consciousness, no pruritus, and no skin ulcerations. Review of 14 systems completed, all others are negative. PHYSICAL EXAMINATION GENERAL: At this time, Mr. Kay is a 39-year-old male patient. He is sitting in the ED stretcher. He does not appear to be in any acute distress. VITAL SIGNS: Blood pressure 135/84; pulse 111; respirations when he came in were 30, now they are hovering between 20 and 22; O2 sat 98% on room air; temperature 102.3. HEENT: Head: Atraumatic, normocephalic. Eyes: EOMs are intact. Sclerae anicteric and not pale. Throat: Oral mucosa appears to be dry. No oropharyngeal erythema. NECK: Supple. LUNGS: He had rhonchi in the upper lobes. He had expiratory wheezes noted in the left lower and left upper lobe as well. Equal diaphragmatic expansion. HEART: Sounds S1, S2. He had no murmurs, rubs, or gallops. ABDOMEN: Soft. It was flat, nontender. Bowel sounds are present. EXTREMITIES: Pulses were 2+ throughout. He had no peripheral edema. He is moving all 4 extremities with 5/5 strength. NEUROLOGICAL: He is awake. He is alert. He is oriented x3. Tongue midline. Floor Representative are equal. He had no gross focal deficits. SKIN: Grossly intact. DIAGNOSTIC STUDIES/LAB DATA: Labs: WBC 11.5, RBC 4.23, hemoglobin 12.7, hematocrit 38, platelet count of 217. Sodium 138, potassium 3.8, chloride of 101, bicarb 25, BUN 13, creatinine 0.80, glucose 89, lactic 0.9, calcium 9. Total bili 0.4, AST 17, ALT 16, alk phos 65, CK 106. Troponin 0.01. CRP 221.52. BNP 105. Albumin 4.3. Urine showed 2+ protein, 2+ ketones, 3+ blood, high specific gravity of 1.031. Serology negative for flu. He had an EKG obtained today, which did show sinus tachycardia at a rate of 108. No ST elevations or T-wave inversions noted. Chest x-ray does show what appears to be an infiltrate on the left mid lung. Would recommend followup until resolution to exclude underlying pulmonary parenchymal pathology. Old medical records were reviewed. ASSESSMENT AND PLAN: Mr. Kay is a 39-year-old male patient with no medical history, coming into the ED today with complaints of cough, fever, chills, found to have pneumonia and sepsis. He will be admitted under inpatient status for: 1. Pneumonia with sepsis. I do not see any signs of end organ dysfunction at this point or no evidence of septic shock. However, he is tachycardic, he is febrile, so I will give him 30 cc/kg of fluids. I am going to start him on Levaquin. We will panculture him. We will check sputum culture. We will get Legionella antigen, Strep pneumo antigen. Given that he did not completely resolve with his previous infection, I am going to check an HIV. Also, we will do a CT of the chest. I am placing him on nebulizers, steroids and again, we will continue with aggressive pulmonary toileting and we will continue to follow him closely. 2. DVT prophylaxis: He is at moderate risk. We will place him on heparin subcu. 3. Code status: Full code. 4. Fluids, electrolytes, and nutrition: He can have a regular diet. TIME SPENT: Time spent on the admission was 60 minutes, greater than half the time was spent [id number] with the patient obtaining my history and physical, other half time spent going over the plan of care with the patient and implementing plan of care. I did discuss the plan of care with my attending, Dr. Breaux; she is in agreement. EFRAÍN CARVER, DOUGH MIXER HELPER [id number]/[facility] #: [id number] HILARIA
[2019-11-23 21:53] LABS: HIV 4th Generation Nonreactive (Nonreactive)
[2019-11-23] MEDS: Levofloxacin 750 MG IVPREMIX(* 750 MG/150 ML BAG IVPB SCH (22:22)
[2019-11-23] MEDS: Heparin VIAL(*) 5000 UNITS/ML VIAL (FIVE THOUSAND) SUBCUT SCH (22:37)
[2019-11-23] MEDS: methylPREDNISolone 125 MG* 2 ML VIAL IV SCH (22:37)
[2019-11-23] MEDS: Albuterol/Ipratropium NEB.SOL* Albuterol 2.5 MG/Ipratropium 0.5 MG 3 ML INH SCH (23:21)
[2019-11-23] MEDS: Mometasone/Formoter 200/5 MDI INH SCH (23:22)
[2019-11-24] MEDS: Albuterol/Ipratropium NEB.SOL* Albuterol 2.5 MG/Ipratropium 0.5 MG 3 ML INH SCH (03:04)
[2019-11-24] MEDS: Heparin VIAL(*) 5000 UNITS/ML VIAL (FIVE THOUSAND) SUBCUT SCH ×3 (05:22→20:42)
[2019-11-24 05:54] LABS: ABS Lymphocytes 0.7 10^3/ul (1.0-4.8); ABS Monocytes 0.2 10^3/ul (0-0.8); ABS Neutrophils 9.3 10^3/ul (1.5-7.7); Hematocrit 38 % (42-52); Lymphocyte % 6.9 %; Mean Corpuscular HGB Conc 34 g/dL (31-36); Mean Corpuscular Hemoglobin 30 pg (27-31); Mean Corpuscular Volume 89 fL (80-94); Mean Platelet Volume 8.7 fL (7.4-10.4); Platelet Count 228 10^3/uL (150-450); Red Blood Count 4.28 10^6 /uL (4.18-5.48); Red Cell Distribution Width 14 % (10-15); White Blood Count 10.3 10^3/uL (3.5-10.8)
[2019-11-24 06:03] LABS: INR 1.35 (0.82-1.09)
[2019-11-24 06:15] LABS: BUN/Creatinine Ratio 14.1 (8-20); EGFR African American 150.2 (>60); EGFR Non-African American 124.2 (>60)
[2019-11-24] MEDS ORDERED: Albuterol/Ipratropium NEB.SOL* Albuterol 2.5 MG/Ipratropium 0.5 MG 3 ML INH SCH (07:00)
[2019-11-24] MEDS: Mometasone/Formoter 200/5 MDI INH SCH ×2 (07:43→20:02)
[2019-11-24] MEDS: methylPREDNISolone 125 MG* 2 ML VIAL IV SCH ×2 (08:45→20:41)
[2019-11-24] MEDS ORDERED: Albuterol/Ipratropium NEB.SOL* Albuterol 2.5 MG/Ipratropium 0.5 MG 3 ML INH PRN (08:47)
--- NOTE | 2019-11-24 17:41 | PN ---
Subjective Date of Service: 11/24/19 Interval History: HOSPITALIST PROGRESS NOTE Patient seen and examined at bedside. Care reviewed and d/w Murali Riggs RN. He feels a little better today. Still very tired, but breathing and cough seem to be improving. Family History: Unchanged from Admission Social History: Unchanged from Admission Past Medical History: Unchanged from Admission Objective Active Medications: Acetaminophen (Tylenol Tab*) 650 mg PO Q4H PRN PRN Reason: MILD PAIN or TEMP > 100.4 Albuterol (Ventolin 2.5 Mg/3 Ml Neb.Heide*) 2.5 mg INH Q2H PRN PRN Reason: SOB/WHEEZING Last Admin: 11/23/19 23:44 Dose: 2.5 mg Albuterol/Ipratropium (Duoneb (Albuterol 2.5 Mg/Ipratropium 0.5 Mg)) 1 neb INH [id number] AWAKE PRN PRN Reason: SOB/WHEEZING Heparin Sodium (Porcine) (Heparin Vial(*)) 5,000 units SUBCUT Q8HR [facility] Last Admin: 11/24/19 14:42 Dose: Not Given Levofloxacin/Dextrose (Levaquin 750 Mg Ivpremix(*)) 750 mg in 150 mls @ 100 mls /hr IVPB Q24H TIFFANIE; Protocol Last Admin: 11/23/19 22:22 Dose: 100 mls/hr Methylprednisolone Sodium Succinate (Solu-Medrol 125mg *) 60 mg IV Q12H TIFFANIE Last Admin: 11/24/19 08:45 Dose: 60 mg Mometasone Furoate/Formoterol Fumar (Dulera 200/5 Mdi*) 2 puff INH BID TIFFANIE Last Admin: 11/24/19 07:43 Dose: 2 puff Vital Signs - 8 hr 11/24/19 11/24/19 11:00 15:00 Temperature 98 F 97 F Pulse Rate 101 108 Respiratory 18 18 Rate Blood Pressure 127/80 150/82 (mmHg) O2 Sat by Pulse 99 97 Oximetry Oxygen Devices in Use Now: None Appearance: Pleasant gentleman sitting up in bed in NAD Eyes: No Scleral Icterus Ears/Nose/Mouth/Throat: Mucous Membranes Moist Neck: Trachea Midline Respiratory: Symmetrical Chest Expansion and Respiratory Effort, - - BS+ bilaterally with crackles and scattered wheezing on the left Cardiovascular: RRR - Normal S1 and S2 Extremities: No Edema Neurological: Alert and Oriented x 3, NL Muscle Strength and Tone Result Diagrams: 11/24/19 05:45 11/24/19 05:45 Microbiology and Other Data: Microbiology 11/23/19 20:00 Gram Stain - Final Sputum 11/23/19 17:17 Legionella Urinary Antigen - Final Urine Negative Legionella Antigen Streptococcus pneumoniae Ag Screen - Final Negative S. pneumo Antigen Assess/Plan/Problems-Billing Assessment: Mr Kay is a 39yo M with NS PMH who presented to ED with c/o fever, cough , dyspnea, found to have sepsis secondary to CAP. - Patient Problems (1) Sepsis Comment: - Presented with fever, tachycardia - source is community acquired pneumonia. (2) Pneumonia Comment: - Multilobar pneumonia - has had respiratory symptoms since September, failed outpatient therapy with Augmentin. - Continue Levofloxacin. - Legionella and pneumococcal Ag are negative. - Follow blood and sputum cultures. - He also seems to have a component of reactive airway disease, with wheezing on physical examination. Denies any history of asthma. Continue steroids and bronchodilators. (3) DVT prophylaxis Comment: - SQ heparin. (4) Full code status Status and Disposition: Inpatient. Anticipate d/c in AM if he continues to improve.
[2019-11-24] MEDS: Levofloxacin 750 MG IVPREMIX(* 750 MG/150 ML BAG IVPB SCH (20:41)
[2019-11-25] MEDS ORDERED: diPHENhydraMINE PO* 25 MG PO PRN (01:50)
[2019-11-25] MEDS: Heparin VIAL(*) 5000 UNITS/ML VIAL (FIVE THOUSAND) SUBCUT SCH (05:21)
[2019-11-25] MEDS: Mometasone/Formoter 200/5 MDI INH SCH (08:47)
[2019-11-25] MEDS: methylPREDNISolone 125 MG* 2 ML VIAL IV SCH (08:49)
[2019-11-25 09:02] VITALS: BP 127/76
--- NOTE | 2019-11-26 14:04 | DS ---
CC: Dr. Andre DISCHARGE SUMMARY: DATE OF ADMISSION: 11/23/19 DATE OF DISCHARGE: 11/25/19 PRIMARY CARE PROVIDER: Dr. Andre. DISCHARGE DIAGNOSES: 1. Sepsis. 2. Community-acquired pneumonia. 3. Reactive airway disease. SECONDARY DIAGNOSIS: Obesity with a BMI of 34. MEDICATION LIST: 1. Acetaminophen 650 mg p.o. q.6 hours p.r.n. pain or fever. 2. Albuterol 2.5 mg nebulized q.4 hours p.r.n. shortness of breath. 3. Albuterol HFA 2 puffs inhaled q.6 hours p.r.n. shortness of breath. 4. NyQuil Cold and Flu 1 tablet p.o. daily as needed for congestion. New medications: 1. Levofloxacin 750 mg p.o. daily for 7 days. 2. Dulera 200/5 two puffs inhaled b.i.d. 3. Prednisone taper as follows: 40 mg p.o. daily for 3 days, 30 mg for 3 days, 20 mg for 3 days, 10 mg for 3 days, 5 mg for 3 days, then stop. HOSPITAL COURSE: Mr. Kay is a 39-year-old male with a past medical history as stated above, who presented to the emergency room with complaints of fever, cough, and shortness of breath. In [facility], he had similar presentation and at that point he was diagnosed with an URI, treated with Augmen tin, albuterol, and steroids. He had some initial improvement, but then his symptoms continued to wo rse and he went to [facility] where he was noted to have an infiltrate on his x-ray and borderli ne oxygen saturation in the low 90s, reason why he came to the emergency room. For more details abou t his presentation, I refer you to his history and physical. In the emergency room, he had a fever, was tachycardic and his presentation was compatible with sepsi s. CT of the chest showed multifocal pneumonia on the left. Blood cultures yielded no growth and at the time of discharge sputum culture also had no organisms. Legionella and pneumococcal antigens were negative as well as influenza A and B. The patient has no history of diabetes, asthma, or other causes of immunosuppression. HIV was tested and it was negativ e. The patient became afebrile, had improvement of his symptoms, but he is still noted to have wheezing. He had no history of asthma as a child. I believe this is likely reactive airway disease in the se tting of infection, but he will need followup and monitoring as an outpatient. He is being discharge d on a steroid taper and he felt that the Symbicort he was using as an outpatient was not working as well as the Dulera that he was using in the hospital, so for that reason the medication was changed. He is on the maximum dose of Dulera and that should be also tapered as an outpatient. He may benefi t from PFTs later on after his pneumonia resolves if he still has shortness of breath and wheezing. The patient is medically stable to be discharged home today. He was advised to be off of his activit ies until next week and to see his PCP before returning to work. The patient was started on levofloxacin as he has failed beta-lactam as an outpatient. He received e ducation about side effects of levofloxacin including tendinopathy. PHYSICAL EXAMINATION: Vital Signs: Temperature 97.6, heart rate is 81, respiratory rate is 16, oxyg en saturation 95% on room air, blood pressure is 127/76. CVS: Normal S1, S2. Regular rate and rhyt hm. Chest: Breath sounds present bilaterally with crackles on the left, but no other added sounds. Abdomen is obese, soft. Bowel sounds are present. Neuro: He is alert and oriented x3. Able to mov e all 4 extremities. DIET: Regular diet. ACTIVITIES: As tolerated. DISPOSITION: To home. STATUS WHILE IN THE HOSPITAL: Inpatient. CONDITION AT THE TIME OF DISCHARGE: Fair. Please keep in mind that this is a summarized version of this patient's hospital stay. If you need m ore information, please feel free to call me at [phone] or please obtain full medical records. [id number]/[facility] #: [id number]
== END 2019-11-25 10:25 | disposition home or self-care (01) | DRG 871 ==
LOC: ED 17:11 → MED 19:58
PROVIDERS: ADMIT Hospitalist; ATTEND Internal Medicine
DX: A41.9 Sepsis, unspecified organism (principal); R09.02 Hypoxemia; J18.9 Pneumonia, unspecified organism; J45.909 Unspecified asthma, uncomplicated; E66.9 Obesity, unspecified; Z68.34 Body mass index [BMI] 34.0-34.9, adult; Z79.899 Other long term (current) drug therapy; Z79.51 Long term (current) use of inhaled steroids; Z91.048 Other nonmedicinal substance allergy status
CPT/HCPCS: 36415; 71260; 80048; 80053; 81003; 81015; 82550; 83605; 83880; 84484; 85025; 85610; 85730; 86140; 87040; 87070; 87077; 87086; 87185; 87186; 87205; 87389; 87899; 93005; 94640; 96374; 99284; A9270-GY; J0456; J1644; J2930; Q9967